=== PATIENT | female | born 1940 | race African-American/Black ===

== ENCOUNTER 2020-06-15 08:00 | Inpatient (IN) | payer OTHER, BC ==
[2020-06-11 10:58] VITALS: BMI 30.9
[~2020-06-15 08:00] MED LIST: VANCOMYCIN 1,000 MG VIAL (RESTRICTED TO ID ONLY) IVPB ONE
[2020-06-15] MEDS ORDERED: CELECOXIB 200 MG CAPSULE PO ONE (08:54)
[2020-06-15] MEDS ORDERED: BUPIVACAINE LIPOSOME/PF (EXPAREL) 266 MG/20 ML VIAL ONE (10:44)
[2020-06-15] MEDS ORDERED: SODIUM CHLORIDE 0.9% P/F 10 ML VIAL IJ ONE (10:44)
[2020-06-15] MEDS ORDERED: MIDAZOLAM HCL 2 MG/2 ML SINGLE DOSE VIAL ONE (10:44)
[2020-06-15] MEDS ORDERED: ceFAZolin SODIUM 1 GM VIAL ONE ×2 (10:59→11:39)
[2020-06-15] MEDS ORDERED: TRANEXAMIC ACID 1000 MG/10 ML VIAL IVPUSH ONE (11:00)
[2020-06-15] MEDS ORDERED: CEFAZOLIN 2 GM in DEXTROSE 5%-WATER - 50 ML IVPB ONE (11:00)
[2020-06-15] MEDS ORDERED: VANCOMYCIN 1,000 MG VIAL (RESTRICTED TO ID ONLY) IVPB ONE (13:00)
[2020-06-15] MEDS ORDERED: VANCOMYCIN 1,000 MG VIAL (RESTRICTED TO ID ONLY) ONE (13:04)
[2020-06-15] MEDS ORDERED: ONDANSETRON 4 MG/2 ML VIAL ONE (13:16)
[2020-06-15] MEDS ORDERED: MAG HYDROX/AL HYDROX/SIMETH 30 ML UNIT-DOSE CUP PO PRN (13:37)
[2020-06-15] MEDS ORDERED: ONDANSETRON 4 MG/2 ML VIAL IVPUSH PRN (13:37)
[2020-06-15] MEDS ORDERED: MAGNESIUM HYDROX 2400MG/30ML ORAL SUSPENSION 30 ML CUP PO PRN (13:37)
[2020-06-15] MEDS ORDERED: LACTATED RINGERS SOLUTION 1,000 ML IV SCH (13:45)
[2020-06-15] MEDS ORDERED: ACETAMINOPHEN 325 MG TABLET (FP) ONE (14:29)
[2020-06-15] MEDS: ACETAMINOPHEN 325 MG TABLET (FP) PO SCH ×2 (14:36→20:07)
[2020-06-15] MEDS: oxyCODONE HCL 5 MG TABLET PO PRN ×2 (17:45→23:48)
[2020-06-15] MEDS: CEFAZOLIN 2 GM/D5W 2 GM/50 ML ML IVPB SCH (20:07)
[2020-06-15] MEDS: SENNOSIDES/DOCUSATE COMBO (SENNA PLUS) TABLET (UD) PO SCH (21:19)
[2020-06-15] MEDS: NIFEdipine E.R. 90 MG TABLET PO SCH (21:20)
[2020-06-15] MEDS: TAMOXIFEN CITRATE 10 MG TABLET PO SCH (21:20)
[2020-06-15] MEDS ORDERED: PATIENT'S OWN MEDICATION (NON-FORMULARY) (Tamoxifen Citrate [Tamoxifen Citrate] 20 MG Tabl PO SCH (22:00)
[2020-06-16] MEDS: ACETAMINOPHEN 325 MG TABLET (FP) PO SCH ×4 (03:09→20:53)
[2020-06-16] MEDS: CEFAZOLIN 2 GM/D5W 2 GM/50 ML ML IVPB SCH (03:09)
[2020-06-16] MEDS: oxyCODONE HCL 5 MG TABLET PO PRN ×3 (06:50→13:09)
[2020-06-16] MEDS: ASPIRIN 325 MG TABLET PO SCH (08:08)
[2020-06-16 08:15] LABS: HEMATOCRIT 26.2 % (32.4-45.2); HEMOGLOBIN 8.4 GM/dl (10.7-15.3); MCH 26.8 pg (25.7-33.7); MEAN CELL VOLUME 83.7 fl (80-96); MEAN PLT VOLUME 8.4 fl (7.5-11.1); PLATELET COUNT 285 K/MM3 (134-434); RBC 3.13 M/mm3 (3.60-5.2); RDW 13.5 % (11.6-15.6); WHITE BLOOD COUNT 8.7 K/mm3 (4.0-10.8)
[2020-06-16] MEDS: HYDROCHLOROTHIAZIDE 25 MG TABLET (FP) PO SCH (09:19)
[2020-06-16] MEDS: SENNOSIDES/DOCUSATE COMBO (SENNA PLUS) TABLET (UD) PO SCH ×2 (09:19→21:08)
[2020-06-16] MEDS: MULTIVITAMINS (DAILY MVI) TABLET (FP) PO SCH (09:19)
[2020-06-16] MEDS: LOSARTAN POTASSIUM 50 MG TABLET PO SCH (09:19)
[2020-06-16] MEDS: PANTOPRAZOLE 40 MG TABLET PO SCH (09:19)
[2020-06-16] MEDS ORDERED: PATIENT'S OWN MEDICATION (NON-FORMULARY) (Losartan Potassium [Losartan Potassium] 100 MG T PO SCH (10:00)
[2020-06-16] MEDS: NIFEdipine E.R. 90 MG TABLET PO SCH (21:09)
[2020-06-16] MEDS: TAMOXIFEN CITRATE 10 MG TABLET PO SCH (21:09)
[2020-06-16] MEDS ORDERED: LOCK ITEM NR ONE (21:26)
[2020-06-17] MEDS: ACETAMINOPHEN 325 MG TABLET (FP) PO SCH ×4 (03:09→20:01)
[2020-06-17] MEDS: ASPIRIN 325 MG TABLET PO SCH (07:30)
[2020-06-17] MEDS: oxyCODONE HCL 5 MG TABLET PO PRN ×3 (08:17→20:00)
[2020-06-17 08:53] LABS: HEMATOCRIT 27.1 % (32.4-45.2); HEMOGLOBIN 8.8 GM/dl (10.7-15.3); MCH 27.1 pg (25.7-33.7); MCHC 32.5 g/dl (32.0-36.0); MEAN CELL VOLUME 83.6 fl (80-96); MEAN PLT VOLUME 8.9 fl (7.5-11.1); PLATELET COUNT 306 K/MM3 (134-434); RBC 3.24 M/mm3 (3.60-5.2); RDW 13.5 % (11.6-15.6); WHITE BLOOD COUNT 14.5 K/mm3 (4.0-10.8)
[2020-06-17] MEDS: MULTIVITAMINS (DAILY MVI) TABLET (FP) PO SCH (09:31)
[2020-06-17] MEDS: SENNOSIDES/DOCUSATE COMBO (SENNA PLUS) TABLET (UD) PO SCH ×2 (09:31→22:05)
[2020-06-17] MEDS: LOSARTAN POTASSIUM 50 MG TABLET PO SCH (09:32)
[2020-06-17] MEDS: PANTOPRAZOLE 40 MG TABLET PO SCH (09:32)
[2020-06-17] MEDS: HYDROCHLOROTHIAZIDE 25 MG TABLET (FP) PO SCH (09:32)
[2020-06-17] MEDS: TAMOXIFEN CITRATE 10 MG TABLET PO SCH (22:09)
[2020-06-17] MEDS: NIFEdipine E.R. 90 MG TABLET PO SCH (22:10)
[2020-06-18] MEDS: ACETAMINOPHEN 325 MG TABLET (FP) PO SCH ×2 (06:04→09:07)
[2020-06-18] MEDS: oxyCODONE HCL 5 MG TABLET PO PRN ×2 (06:05→09:08)
[2020-06-18] MEDS: ASPIRIN 325 MG TABLET PO SCH (08:10)
[2020-06-18 09:06] VITALS: BP 131/59; PULSE 86; TEMP 98.7
[2020-06-18] MEDS: PANTOPRAZOLE 40 MG TABLET PO SCH (09:07)
[2020-06-18] MEDS: MULTIVITAMINS (DAILY MVI) TABLET (FP) PO SCH (09:08)
[2020-06-18] MEDS: SENNOSIDES/DOCUSATE COMBO (SENNA PLUS) TABLET (UD) PO SCH (09:08)
[2020-06-18] MEDS: LOSARTAN POTASSIUM 50 MG TABLET PO SCH (09:08)
[2020-06-18] MEDS: HYDROCHLOROTHIAZIDE 25 MG TABLET (FP) PO SCH (09:08)
== END 2020-06-18 12:17 | DRG 470 ==
LOC: FM/S 08:38
PROVIDERS: ADMIT Orthopaedic Surgery; ATTEND Orthopaedic Surgery
PROC: 0SRD0J9 Replacement of Left Knee Joint with Synthetic Substitute, Cemented, Open Approach (ICD-10-PCS; principal; 2020-06-16)
PROC: 8E0Y0CZ Robotic Assisted Procedure of Lower Extremity, Open Approach (ICD-10-PCS; 2020-06-16)
DX: M17.12 Unilateral primary osteoarthritis, left knee (principal); I10 Essential (primary) hypertension
CPT/HCPCS: 36415; 73560-TC-LT-FY; 85027; 88304-TC; 88311-TC; 94760; 97116-GP; 97163-GP

== ENCOUNTER 2023-05-29 07:55 | Day surgery (SDC) | payer OTHER, BC ==
[2023-05-23 10:45] VITALS: BMI 31.8
[2023-05-29] MEDS ORDERED: VANCOMYCIN 1,000 MG VIAL (RESTRICTED TO ID ONLY) ONE (08:46)
[2023-05-29] MEDS ORDERED: ceFAZolin SODIUM 1 GM VIAL ONE ×2 (08:46→10:09)
[2023-05-29] MEDS ORDERED: THROMBIN (BOVINE) 5,000 UNIT VIAL TP ONE (09:04)
[2023-05-29] MEDS ORDERED: FENTANYL CITRATE/PF 50 MCG/ML VIAL ONE ×2 (09:37→12:41)
[2023-05-29] MEDS ORDERED: BUPIVACAINE HCL/PF 0.5% (5 MG/ML) 30 ML VIAL IJ ONE (09:37)
[2023-05-29] MEDS ORDERED: BUPIVACAINE LIPOSOME/PF (EXPAREL) 266 MG/20 ML VIAL ONE (09:38)
[2023-05-29] MEDS ORDERED: BUPIVACAINE HCL/PF 0.5% (5MG/ML) 10 ML VIAL ONE (09:38)
[2023-05-29] MEDS ORDERED: MIDAZOLAM HCL 2 MG/2 ML SINGLE DOSE VIAL ONE (09:38)
[2023-05-29] MEDS ORDERED: SODIUM CHLORIDE 0.9% P/F 10 ML VIAL IJ ONE (09:38)
[2023-05-29] MEDS ORDERED: LIDOCAINE HCL/PF 2% SDV 5ML VIAL ONE (09:57)
[2023-05-29] MEDS ORDERED: ONDANSETRON 4 MG/2 ML VIAL ONE (09:57)
[2023-05-29] MEDS ORDERED: CEFAZOLIN 2 GM in DEXTROSE 5%-WATER - 50 ML IVPB ONE (10:00)
[2023-05-29] MEDS ORDERED: TRANEXAMIC ACID 1000 MG/10 ML VIAL ONE (10:09)
[2023-05-29] MEDS ORDERED: LACTATED RINGERS SOLUTION 1,000 ML IV SCH ×2 (10:15→12:15)
[2023-05-29] MEDS ORDERED: ONDANSETRON 4 MG/2 ML VIAL IVPUSH PRN ×2 (10:15→12:05)
[2023-05-29] MEDS ORDERED: TRANEXAMIC ACID 1000 MG/10 ML VIAL IVPUSH ONE (11:00)
[2023-05-29] MEDS ORDERED: VANCOMYCIN 1,000 MG VIAL (RESTRICTED TO ID ONLY) IVPB ONE (11:21)
[2023-05-29] MEDS ORDERED: oxyCODONE HCL 5 MG TABLET PO PRN (12:05)
[2023-05-29] MEDS: ACETAMINOPHEN 1000 MG/100 ML BAG IVPB ONE ×2 (12:06→15:03)
[2023-05-29] MEDS ORDERED: HYDROmorphone HCL/PF 1 MG/ML VIAL ONE (12:07)
[2023-05-29] MEDS: HYDROmorphone HCl 2 MG/ML VIAL IVPUSH PRN ×2 (12:10→12:30)
[2023-05-29] MEDS ORDERED: KETOROLAC TROMETHAMINE 30 MG/1 ML VIAL ONE (12:50)
[2023-05-29] MEDS ORDERED: oxyCODONE HCL 5 MG TABLET ONE (13:25)
[2023-05-29] MEDS: CEFAZOLIN SODIUM 2 GM in DEXTROSE 5%-WATER 100 ML IVPB SCH (17:52)
[2023-05-29] MEDS: oxyCODONE HCL 5 MG TABLET PO PRN (19:56)
[2023-05-29] MEDS: SENNOSIDES/DOCUSATE COMBO (SENNA PLUS) TABLET (UD) PO SCH (21:11)
[2023-05-30] MEDS: CEFAZOLIN SODIUM 2 GM in DEXTROSE 5%-WATER 100 ML IVPB SCH (01:18)
[2023-05-30] MEDS: oxyCODONE HCL 5 MG TABLET PO PRN ×3 (05:47→13:20)
[2023-05-30] MEDS: ASPIRIN 325 MG TABLET PO SCH (08:13)
[2023-05-30] MEDS: HYDROmorphone HCl 2 MG/ML VIAL IVPUSH PRN (08:13)
[2023-05-30 08:53] LABS: HEMATOCRIT 27.1 % (32.4-45.2); HEMOGLOBIN 8.5 G/dL (10.7-15.3); MCHC 31.2 g/dl (32.0-36.0); MEAN CELL VOLUME 83.4 fl (80-96); MEAN PLT VOLUME 8.6 fl (7.5-11.1); PLATELET COUNT 312.3 10^3/uL (134-434); RBC 3.25 10^6/uL (3.60-5.2); RDW 15.2 % (11.6-15.6); WHITE BLOOD COUNT 8.7 10^3/uL (4.0-10.8)
[2023-05-30] MEDS: NIFEdipine E.R. 90 MG TABLET PO SCH (09:24)
[2023-05-30] MEDS: PANTOPRAZOLE 40 MG TABLET PO SCH (09:25)
[2023-05-30] MEDS: MULTIVITAMINS (DAILY MVI) TABLET (FP) PO SCH (09:25)
[2023-05-30] MEDS: LOSARTAN POTASSIUM 50 MG TABLET PO SCH (09:25)
[2023-05-30] MEDS: HYDROCHLOROTHIAZIDE 25 MG TABLET (FP) PO SCH (09:25)
[2023-05-30] MEDS: SENNOSIDES/DOCUSATE COMBO (SENNA PLUS) TABLET (UD) PO SCH ×2 (09:26→21:14)
[2023-05-31 01:28] VITALS: PULSE 96
[2023-05-31 06:53] VITALS: RESP 20
[2023-05-31 08:14] LABS: HEMATOCRIT 27.8 % (32.4-45.2); HEMOGLOBIN 8.6 G/dL (10.7-15.3); MCH 26.2 pg (25.7-33.7); MCHC 31.1 g/dl (32.0-36.0); MEAN CELL VOLUME 84.2 fl (80-96); MEAN PLT VOLUME 8.5 fl (7.5-11.1); PLATELET COUNT 300.9 10^3/uL (134-434); RDW 15.7 % (11.6-15.6); WHITE BLOOD COUNT 16.5 10^3/uL (4.0-10.8)
[2023-05-31] MEDS: PANTOPRAZOLE 40 MG TABLET PO SCH (09:10)
[2023-05-31] MEDS: HYDROCHLOROTHIAZIDE 25 MG TABLET (FP) PO SCH (09:10)
[2023-05-31] MEDS: LOSARTAN POTASSIUM 50 MG TABLET PO SCH (09:11)
[2023-05-31] MEDS: ASPIRIN 325 MG TABLET PO SCH (09:11)
[2023-05-31] MEDS: NIFEdipine E.R. 90 MG TABLET PO SCH (09:11)
[2023-05-31] MEDS: MULTIVITAMINS (DAILY MVI) TABLET (FP) PO SCH (09:12)
[2023-05-31] MEDS: oxyCODONE HCL 5 MG TABLET PO PRN (09:12)
[2023-05-31] MEDS: SENNOSIDES/DOCUSATE COMBO (SENNA PLUS) TABLET (UD) PO SCH (09:12)
[2023-05-31 11:40] VITALS: BP 123/62; TEMP 99.4
== END 2023-05-31 13:32 | disposition home health service (06) ==
LOC: FASUSAT 07:55 → FM/S 14:41 → FASUSAT 05-31 13:32
PROVIDERS: ATTEND Orthopaedic Surgery
PROC: 8E0Y0CZ Robotic Assisted Procedure of Lower Extremity, Open Approach (ICD-10-PCS; 2023-05-29)
PROC: 0SRC0J9 Replacement of Right Knee Joint with Synthetic Substitute, Cemented, Open Approach (ICD-10-PCS; principal; 2023-05-29 10:15)
DX: M17.11 Unilateral primary osteoarthritis, right knee (principal)
CPT/HCPCS: 20985; 27447; C1776; S2900; 36415; 73560-TC-RT-FY; 85027; 94760; 97010-GP; 97116-GP; 97161-GP; C1713; C1889

== ENCOUNTER 2024-05-05 05:16 | Day surgery (SDC) | payer OTHER, BC ==
[2024-04-30 14:55] VITALS: BMI 31.3
[2024-05-05] MEDS ORDERED: PROPOFOL 40 ML ONE (07:18)
[2024-05-05] MEDS ORDERED: MIDAZOLAM HCL 2 MG/2 ML SINGLE DOSE VIAL ONE (07:21)
[2024-05-05] MEDS ORDERED: ACETAMINOPHEN 325 MG TABLET (FP) PO PRN (07:52)
[2024-05-05] MEDS ORDERED: oxyCODONE HCL 5 MG TABLET PO PRN ×2 (07:52→08:35)
[2024-05-05] MEDS ORDERED: IBUPROFEN 400 MG TABLET (FP) PO PRN (07:52)
[2024-05-05] MEDS: ceFAZolin 2 GRAM PREMIX BAG IVPB ONE (08:00)
[2024-05-05] MEDS ORDERED: DEXAMETHASONE SOD PHOSPHATE 4 MG/1 ML VIAL ONE (08:13)
[2024-05-05] MEDS ORDERED: ONDANSETRON 4 MG/2 ML VIAL ONE (08:13)
[2024-05-05] MEDS ORDERED: ONDANSETRON 4 MG/2 ML VIAL IVPUSH PRN (08:35)
[2024-05-05 10:46] VITALS: BP 110/54; PULSE 64; RESP 18; TEMP 97.1
== END 2024-05-05 11:41 | disposition home or self-care (01) ==
LOC: JASU-SURG 05:16
PROVIDERS: ATTEND Obstetrics & Gynecology
PROC: 0UBC7ZX Excision of Cervix, Via Natural or Artificial Opening, Diagnostic (ICD-10-PCS; principal; 2024-05-05 07:30)
PROC: 0UB98ZZ Excision of Uterus, Via Natural or Artificial Opening Endoscopic (ICD-10-PCS; 2024-05-05 07:30)
DX: D25.0 Submucous leiomyoma of uterus (principal); N88.2 Stricture and stenosis of cervix uteri
CPT/HCPCS: 86850; 86900; 86901; 88305-TC; 88307-TC; 88341-TC; 88342-TC; 94760